=== PATIENT | female | born 1960 | race African-American/Black ===

== ENCOUNTER 2021-06-24 06:45 | Emergency (ER) | payer OTHER ==
[~2021-06-24] VITALS: Ht 170.2 cm; Wt 74.4 kg
[2021-06-24] MEDS ORDERED: JULUCA 50-25 M1 EACH PO (06:53)
[2021-06-24] MEDS ORDERED: PROVENTIL HFA6.7 G1 (06:56)
[2021-06-24] MEDS ORDERED: SYMBICORT80 MCG/4.1 INH (06:57)
[2021-06-24] MEDS ORDERED: CLONAZEPAM 0.50.5 M1 PO (06:57)
[2021-06-24] MEDS ORDERED: HYDROXYZINE HCL25 M2 PO (06:58)
[2021-06-24 08:15] LABS: ABSOLUTE NEUTROPHILS 2.6 thou/uL (1.4-8.2); BASOPHILS 0.3 % (0.0-2.0); EOSINOPHILS 0.2 % (0.0-3.0); HEMATOCRIT 34.3 % (37.0-47.0); HEMOGLOBIN 10.9 gm/dL (12.0-15.0); LYMPHOCYTES 29.4 % (24.0-44.0); MCH 27.2 pg (26.0-34.0); MCHC 31.8 g/dL (28.0-37.0); MCV 85.6 fL (80.0-100.0); MONOCYTES 7.6 % (1.0-8.0); PLATELET COUNT 215 thou/uL (150-400); POLYS 62.5 % (36.0-66.0); RDW 13.3 % (10.5-14.5); WBC 4.1 thou/uL (4.0-11.0)
[2021-06-24 08:17] LABS: CALCIUM 8.7 mg/dL (8.5-10.1); POTASSIUM 3.6 mmol/L (3.5-5.1)
[2021-06-24 08:27] LABS: ALBUMIN 3.3 g/dL (3.4-5.0); TOTAL BILIRUBIN 0.3 mg/dL (0.2-1.0); TOTAL PROTEIN 6.6 g/dL (6.4-8.2)
[2021-06-24 11:19] VITALS: BP 134/77
--- NOTE | 2021-06-24 15:37 | EKG ---
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: KHURRAM : 1960 Requested By: Charles Ellis Order Number: [id number] MD: Bautista Jacques Measurements Intervals [place] Rate: 68 P: 72 WV: 147 QRS: 64 QRSD: 100 T: 64 QT: 421 QTc: 448 Interpretive Statements Sinus rhythm Anteroseptal infarct, age indeterminate Baseline wander in lead(s) I,III,aVL No previous ECG available for comparison Electronically Signed On 06-24-2021 15:37:09 CDT by Bautista Jacques [email or web address] <ELECTRONICALLY SIGNED> By: Bautista Jacques MD, [facility] 06/24/21 1537 [phone] Bautista Jacques MD, FAC /EPI
== END 2021-06-24 11:20 | disposition home or self-care (01) ==
LOC: ER 06:45
PROVIDERS: Emergency Medicine
DX: R07.89 Other chest pain (principal); J44.9 Chronic obstructive pulmonary disease, unspecified; Z21 Asymptomatic human immunodeficiency virus [HIV] infection status; Z79.899 Other long term (current) drug therapy; Z88.0 Allergy status to penicillin

== ENCOUNTER → 2021-07-04 | Outpatient (CLI) | payer OTHER ==
[~2021-07-04] MED LIST: CLONAZEPAM 0.50.5 M1 PO; HYDROXYZINE HCL25 M2 PO; JULUCA 50-25 M1 EACH PO; PROVENTIL HFA6.7 G1; SYMBICORT80 MCG/4.1 INH
== END ==
LOC: SJCVC 09:15
PROVIDERS: ATTEND Internal Medicine
DX: R07.9 Chest pain, unspecified (principal); I10 Essential (primary) hypertension; E78.5 Hyperlipidemia, unspecified; M25.511 Pain in right shoulder; F17.200 Nicotine dependence, unspecified, uncomplicated; J44.9 Chronic obstructive pulmonary disease, unspecified; Z21 Asymptomatic human immunodeficiency virus [HIV] infection status; Z88.0 Allergy status to penicillin; Z79.899 Other long term (current) drug therapy

== ENCOUNTER → 2021-07-24 | Outpatient (CLI) | payer OTHER | LOC: SJCVCIMAG 07:23 | PROVIDERS: ATTEND Internal Medicine | DX: I07.1 Rheumatic tricuspid insufficiency (principal); I10 Essential (primary) hypertension; E78.5 Hyperlipidemia, unspecified; J44.9 Chronic obstructive pulmonary disease, unspecified; F17.200 Nicotine dependence, unspecified, uncomplicated; Z79.899 Other long term (current) drug therapy; Z88.0 Allergy status to penicillin ==

== ENCOUNTER → 2021-08-06 | Outpatient (CLI) | payer OTHER ==
[~2021-08-06] VITALS: Ht 170.2 cm; Wt 78.0 kg
[~2021-08-06] MED LIST changes: +NITROSTAT0.4 M1 SUBLING
[2021-08-06 09:23] VITALS: BP 128/78
[2021-08-06 09:24] LABS: HEMATOCRIT 36.4 % (37.0-47.0); HEMOGLOBIN 11.3 gm/dL (12.0-15.0); MCH 26.5 pg (26.0-34.0); MCHC 31.1 g/dL (28.0-37.0); MCV 85.2 fL (80.0-100.0); RBC 4.27 mil/uL (4.20-5.00); RDW 13.5 % (10.5-14.5); WBC 4.7 thou/uL (4.0-11.0)
[2021-08-06 09:36] LABS: CALCIUM 9.6 mg/dL (8.5-10.1); CREATININE 1.1 mg/dL (0.6-1.0)
--- NOTE | 2021-08-06 13:25 | EKG ---
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 : 1960 Requested By: Oniel Johns Order Number: [id number] MD: Bautista Jacques Measurements Intervals [place] Rate: 64 P: 79 PA: 145 QRS: 65 QRSD: 104 T: 66 QT: 458 QTc: 473 Interpretive Statements Sinus rhythm RSR' in V1 or V2, probably normal variant Compared to ECG 06/24/2021 06:49:05 RSR' in V1 or V2 now present Myocardial infarct finding no longer present Electronically Signed On 08-06-2021 13:24:59 [employer] by Bautista Jacques [email or web address] <ELECTRONICALLY SIGNED> By: Bautista Jacques MD, [facility] 08/06/21 1324 [phone] Bautista Jacques MD, [facility] /EPI
--- NOTE | 2021-08-06 13:50 | NUR ---
PT ANXIOUS TO LEAVE THE FACILITY TO GET HER RIDE HOME. EXITED AT 1340 INSTEAD OF 1400.
--- NOTE | 2021-08-07 09:05 | CATHLAB ---
[facility] [place] [address] INVASIVE PROCEDURE REPORT Name: CHAGO NEGRETE Room #: REG RAZ Cassandra#: [id number] Admission: 08/06/21 Attend Phys: Oniel Johns Discharge: Date of : 58 Report #: [id number] THIS REPORT FOR: cc: RADHA - Dia family physician/PCP RADHA - No family physician/PCP Oniel Johns MD ~ APPROVED REPORT Study performed: 08/06/2021 10:38:23 Patient Details Patient Status: Out-Patient Room #: The patient is a 60 year-old female Event Personnel Oniel Johns Research Lab Assistant, Yareli Garza RN RN, Tanya Robles RTR ScrRoss espinoza Roberta Monitor Procedures Performed Art Access - R femoral artery* Left Heart Cath w/or w/o Coronaries [id number] [facility] Indication Positive stress test, Chest pain Procedure Narrative The Right Groin^ was infiltrated with 1% Lidocaine subcutaneous anesthesia. A PINNACLE 4FR Sheath #[id number] sheath was inserted into the RFA^. Coronary angiography was performed using coronary diagnostic catheters. The right coronary system was accessed and visualized with a JR4 catheter. The left coronary system was accessed and visualized with a JL4 catheter. Hemostasis was obtained with manual pressure following sheath removal without any complications. There was no hematoma. Intraoperative Conscious Sedation Sedation start time: 1129 Case end Time: 1204 Fluoro Time: 1.70 minutes Dose: DAP 2582.20 cGycm2 419 mGy Coronary Angiography The patient's coronary anatomy is right dominant. [facility] [address] [place] [address] INVASIVE PROCEDURE REPORT Name: CHAGO NEGRETE Room #: REG CL Cassandra#: [id number] Admission: 08/06/21 Attend Phys: Oniel Green Discharge: Date of : 58 Report #: [id number] Diagnostic Cath Left Main Large-caliber vessel normal origin bifurcates left and descending left circumflex is free of high-grade disease. LAD Moderate caliber type III vessel which has mild irregularities at its origin. And continues in the anterior interventricular sulcus giving rise to septal diagonal branches free of high-grade disease Diagonal 1 Moderate to large caliber vessel free of high-grade disease requested on the anterolateral wall Circumflex Large-caliber vessel bifurcates early into marginal branch and continues posteriorly in the AV groove giving rise to a small terminal posterior wall branch OM1 Moderate caliber bifurcating vessel free of high-grade disease Right Coronary Large-caliber vessel normal origin continues gives rise to an early RV marginal branches are free of high-grade disease with the vessel and continues to the crux of the heart where the posterior ascending artery arises free of high-grade disease. Terminates a small posterior wall branch R PDA Moderate caliber dominant vessel without significant high-grade lesion Left Ventriculography Left Ventriculography was not performed. Hemodynamics The aortic pressure is 152/81 mmHg with a mean of 108 mmHg. The left ventricular pressure is 158/10 mmHg with a mean of mmHg. The left ventricular end diastolic pressure is 28 mmHg. Conclusion 1. Essentially normal coronary arteries 2. Normal hemodynamic Recommendations Cardiac Risk Reduction Program Pursue other etiologies for symptomatology <ELECTRONICALLY SIGNED> By: Oniel Johns MD 08/07/21904 4 4 Oniel Johns MD /INF
== END | disposition home or self-care (01) ==
LOC: CATH 08:13
PROVIDERS: ATTEND Internal Medicine
DX: R07.9 Chest pain, unspecified (principal); R94.39 Abnormal result of other cardiovascular function study; I10 Essential (primary) hypertension; J44.9 Chronic obstructive pulmonary disease, unspecified; K21.9 Gastro-esophageal reflux disease without esophagitis; Z98.890 Other specified postprocedural states; Z79.899 Other long term (current) drug therapy; Z87.891 Personal history of nicotine dependence; Z88.0 Allergy status to penicillin